=== PATIENT | male | born 1985 | race Caucasian/White ===

== ENCOUNTER 2017-04-27 14:39 | Emergency (ER) | payer OTHER ==
[2017-04-27] MEDS ORDERED: XYLOCAINE VISCOUS 2% 20 ML CUP PO ONE (15:46)
[2017-04-27] MEDS ORDERED: Marcaine 0.5%/Epinephrine 10 ML IJ ONE (15:46)
[2017-04-27] MEDS ORDERED: XYLOCAINE HCl Viscous ONE (15:55)
[2017-04-27] MEDS ORDERED: Marcaine 0.5%/Epinephrine 10 ML ONE (15:55)
--- NOTE | 2017-04-27 16:24 | ERPHSYRPT ---
- History of Present Illness Time Seen by Provider: 04/27/17 15:34 Source: patient Patient Subjective Stated Complaint: toothache right side since yesterday. took motrin last night. still hurting today. has no local md or dentist Triage Nursing Assessment: ambulated to room per self. skin w/d, color normal. resp easy. holding right side of face. Physician History: CC: tootchache Hx: 31 y/o patient with hx of cystic fibrosis but not treated. He was adopted from [place] a age 8, grew up in [place], moved to [place], and recently moved her to be close to 's family. He has two children at home. He works at [employer]. He has bad teeth. No insurance. He has severe right lower jaw toothache with swelling and pain. He has some pain in neck. No fever or chills. No diff swallowing or with speech. Pain with swallowing. Timing/Duration: gradual onset ENT Location: dental Allergies/Adverse Reactions: No Known Drug Allergies Allergy (Unverified 04/27/17 15:25) Hx Tetanus, Diphtheria Vaccination/Date Given: Yes Hx Influenza Vaccination/Date Given: No Hx Pneumococcal Vaccination/Date Given: No Immunizations Up to Date: No - Review of Systems Constitutional: No Fever, No Chills Eyes: No Symptoms, No Double Vision Ears, Nose, & Throat: Mouth Pain, Throat Pain Respiratory: No Cough, No Dyspnea Abdominal/Gastrointestinal: No Nausea, No Vomiting - Past Medical History Pertinent Past Medical History: Yes GI Medical History: Pancreatitis Other Medical History: cystic fibrosis - Past Surgical History Past Surgical History: Yes Musculoskeletal: Orthopedic Surgery Other Surgical History: nasal surgery, lac repair to finger - Social History Smoking Status: Former smoker Exposure to second hand smoke: Yes Drug Use: none Patient Lives Alone: No - Nursing Vital Signs Nursing Vital Signs: Initial Vital Signs Temperature 98.1 F 04/27/17 15:18 Pulse Rate 81 04/27/17 15:18 Respiratory Rate 16 04/27/17 15:18 Blood Pressure 153/95 04/27/17 15:18 O2 Sat by Pulse Oximetry 98 04/27/17 15:18 Pain Scale Pain Intensity 10 - Physical Exam General Appearance: alert Eye Exam: bilateral eye: PERRL, EOMI Throat Exam: normal Neck Exam: normal inspection, supple, lymphadenopathy (R) (tender) Cardiovascular/Respiratory Exam: normal breath sounds, regular rate/rhythm Abdominal Exam: non-tender, soft Neurologic Exam: alert, oriented x 3, cooperative Skin Exam: warm, dry, other (no facial cellulitis), No rash SpO2 Interpretation: normal SpO2: 98 Oxygen Delivery: Room Air - Course Nursing assessment & vital signs reviewed: Yes Ordered Tests: Medication Summary Discontinued Medications Generic Name Dose Route Start Last Admin Trade Name Freq PRN Reason Stop Dose Admin Bupivacaine HCl/Epinephrine Bitart 5 ml 04/27/17 15:46 04/27/17 15:58 Marcaine 0.5%/Epinephrine 10 Ml IJ 04/27/17 15:47 5 ml STAT ONE Administration Bupivacaine HCl/Epinephrine Bitart Confirm 04/27/17 15:55 Marcaine 0.5%/Epinephrine 10 Ml Administered 04/27/17 15:56 Dose 10 ml .ROUTE .STK-MED ONE Lidocaine HCl 20 ml 04/27/17 15:46 04/27/17 15:59 Xylocaine Viscous 2% 20 Ml Cup PO 04/27/17 15:47 20 ml STAT ONE Administration Lidocaine HCl Confirm 04/27/17 15:55 Xylocaine Hcl Viscous * Administered 04/27/17 15:56 Dose 20 ml .ROUTE .STK-MED ONE - Progress Progress Note: 04/27/17 16:21 He asked for nerve block. Topical lidocaine placed. Then Cathi Hollingsworth inferior alveolar nervice block done with 0.5% with epi marcaine 2.5ml. Advised dental follow up. [place]PECT [place], [place] reviewed- no entries. Counseled pt/family regarding: diagnosis, need for follow-up - Departure Time of Disposition: 16:23 Departure Disposition: Home Clinical Impression: odontogenic abscess Condition: Stable Critical Care Time: No Instructions: Tooth Abscess (DC), Dental Pain (DC) Additional Instructions: See a dentist as soon as possible. Rx norco. Rx PCN. Return for trouble breathing or swallowing or concerns. No driving with norco. Prescriptions: Hydrocodone Bit/Acetaminophen [[place] 5-325 Tablet] 1 each PO Q6H PRN PRN #15 tablet MDD 4 PRN Reason: Pain Penicillin V Potassium 500 mg PO QID #40 tablet
[2017-04-27 16:34] VITALS: BP 156/96; PULSE 86; O2SAT 99
== END 2017-04-27 17:05 | disposition home or self-care (01) ==
LOC: ED 14:39
DX: K04.7 Periapical abscess without sinus (principal); K08.89 Other specified disorders of teeth and supporting structures; M54.2 Cervicalgia; E84.9 Cystic fibrosis, unspecified
CPT/HCPCS: 99282; A9270-GY

== ENCOUNTER 2017-05-03 17:13 | Emergency (ER) | payer OTHER ==
[2017-05-03] MEDS ORDERED: TORAdol 30 mg Injection IM ONE (17:42)
[2017-05-03] MEDS ORDERED: Augmentin 875-125 Tablet PO ONE (17:42)
--- NOTE | 2017-05-03 17:55 | ERPHSYRPT ---
- History of Present Illness Time Seen by Provider: 05/03/17 17:40 Source: patient Exam Limitations: no limitations Patient Subjective Stated Complaint: Pt is complaining of severe toothace on the right side. He was sen in the ER on 04.27.17 and given a small supply of norco and an antibiotic (penicillin). Pt made an appt with a dentist in [place] but the soonest they could get him in was June 29. She told patient that maybe the antibiotic was not working. Pt states it hurts to talk, eat, and he is unable to open his mouth very wide. Triage Nursing Assessment: Pt alert and oriented x3. skin pink warm and dry. afebrile. right side of face slightly swollen Physician History: 31 y/o male comes to the ER with complaints of right sided tooth pain for the past week. Pt was seen last week and was given a short course of norco and was placed on penicillin with no relief. Pt describes the pain as sharp, constant, 10/10, worse with opening his mouth and not relieved by motrin. No fever or chills. Timing/Duration: gradual onset Severity: severe ENT Location: mouth Prearrival Treatment: no prearrival treatment Modifying Factors: Improves With: activity Associated Symptoms: denies symptoms Allergies/Adverse Reactions: No Known Drug Allergies Allergy (Unverified 04/27/17 15:25) Home Medications: Penicillin V Potassium 500 mg PO BID 05/03/17 [History] Hx Tetanus, Diphtheria Vaccination/Date Given: Yes Hx Influenza Vaccination/Date Given: No Hx Pneumococcal Vaccination/Date Given: No - Review of Systems Constitutional: No Fever, No Chills Eyes: No Symptoms Ears, Nose, & Throat: No Symptoms, Mouth Pain, Loose Teeth Respiratory: No Cough, No Dyspnea Cardiac: No Chest Pain, No Edema, No Syncope Abdominal/Gastrointestinal: No Abdominal Pain, No Nausea, No Vomiting, No Diarrhea Genitourinary Symptoms: No Dysuria Musculoskeletal: No Back Pain, No Neck Pain Skin: No Rash Neurological: No Dizziness, No Focal Weakness, No Sensory Changes Psychological: No Symptoms Endocrine: No Symptoms All Other Systems: Reviewed and Negative - Past Medical History Pertinent Past Medical History: Yes GI Medical History: Pancreatitis Other Medical History: cystic fibrosis - Past Surgical History Past Surgical History: Yes Musculoskeletal: Orthopedic Surgery Other Surgical History: nasal surgery, lac repair to finger - Social History Smoking Status: Former smoker Exposure to second hand smoke: Yes Drug Use: none Patient Lives Alone: No - Nursing Vital Signs Nursing Vital Signs: Initial Vital Signs Temperature 98.4 F 05/03/17 17:30 Pulse Rate 71 05/03/17 17:30 Respiratory Rate 16 05/03/17 17:30 Blood Pressure 119/84 05/03/17 17:30 O2 Sat by Pulse Oximetry 99 05/03/17 17:30 Pain Scale Pain Intensity 10 - Physical Exam General Appearance: no apparent distress, moderate distress, alert Eye Exam: bilateral eye: PERRL, EOMI Nasal Exam: normal inspection Throat Exam: pharynx normal, dental tenderness, moist mucus membranes, No tonsillar exudate Neck Exam: supple Cardiovascular/Respiratory Exam: normal breath sounds, regular rate/rhythm Abdominal Exam: non-tender, soft Neurologic Exam: alert, oriented x 3, sensation nml, No motor deficits Skin Exam: normal color, warm, dry SpO2: 99 Oxygen Delivery: Room Air - Course Nursing assessment & vital signs reviewed: Yes Ordered Tests: Medication Summary Discontinued Medications Generic Name Dose Route Start Last Admin Trade Name Freq PRN Reason Stop Dose Admin Amoxicillin/Clavulanate Potassium 875 mg 05/03/17 17:42 Augmentin 875-125 Tablet PO 05/03/17 17:43 STAT ONE Ketorolac Tromethamine 60 mg 05/03/17 17:42 Toradol 30 Mg Injection IM 05/03/17 17:43 STAT ONE - Progress Progress: unchanged Progress Note: 05/03/17 17:52 Pt will be started on augmentin, norco and toradol for dental pain. Pt has an appointment with his dentist next week. - Departure Time of Disposition: 17:52 Departure Disposition: Home Clinical Impression: Tooth infection Condition: Stable Critical Care Time: No Referrals: DOCTOR,NO FAMILY [Primary Care Provider] - Instructions: Tooth Abscess (DC) Additional Instructions: Follow up with your dentist as soon as possible. Take all medications as instructed. Prescriptions: Amoxicillin/Potassium Clav [Augmentin 875-125 Tablet] 875 mg PO BID #19 tablet Hydrocodone Bit/Acetaminophen [[place] 5-325 Tablet] 1 each PO QID PRN #12 tablet MDD 4 PRN Reason: Severe Pain Ketorolac Tromethamine [Toradol] 10 mg PO QID PRN #20 tablet PRN Reason: Pain
[2017-05-03] MEDS ORDERED: TORAdol 30 mg Injection ONE (17:56)
[2017-05-03] MEDS ORDERED: Augmentin 875-125 Tablet ONE (17:56)
[2017-05-03 18:38] VITALS: BP 126/86; PULSE 76; O2SAT 97
== END 2017-05-03 18:38 | disposition home or self-care (01) ==
LOC: ED 17:13
DX: K04.7 Periapical abscess without sinus (principal)
CPT/HCPCS: 96372; 99283; J1885; A9270-GY